=== PATIENT | female | born 1950 | race Caucasian/White ===

== ENCOUNTER 2021-04-25 22:33 | Inpatient (IN) | payer MEDICARE, OTHER ==
[~2021-04-25] VITALS: Ht 160 cm; Wt 54.4 kg
[2021-04-25] MEDS ORDERED: LORAZEPAM 0.5 MG TABLET PO PRN (23:00)
[2021-04-25] MEDS ORDERED: MAGNESIUM HYDROXIDE 30 ML UDC PO PRN (23:00)
[2021-04-25] MEDS ORDERED: MAG HYDROX/AL HYDROX/SIMETH 30 ML UDC PO PRN (23:00)
[2021-04-25] MEDS ORDERED: TRIA80CR12 TP (23:24)
[2021-04-25] MEDS ORDERED: IVER3TAB2 PO (23:25)
[2021-04-25] MEDS ORDERED: ALBU18HF2 PO (23:25)
[2021-04-25] MEDS ORDERED: RAMI10CA69 PO (23:26)
[2021-04-25] MEDS ORDERED: TIOT18CA3 INH (23:27)
[2021-04-25] MEDS ORDERED: ARIP20TA20 PO (23:28)
[2021-04-25] MEDS ORDERED: BUDE10.2 PO (23:28)
[2021-04-25] MEDS ORDERED: BLOOD SUGAR DIAGNOSTIC 1 EACH STRIP IN ONE (23:30)
--- NOTE | 2021-04-25 23:45 | NUR ---
GPS CERTIFIED WELLNESS PROGRAM COORDINATOR NOTES: RECEIVED PATIENT [facility] BUT ORIGINALLY HOMELESS FOSTER/SKILLED NURSING. PATIENT ARRIVED ON THIS UNIT AT 2210 VIA GURNEY WITH 2 EMT'S. PATIENT ADMITTED ON A 5150 HOLD FOR GD. PER HOLD, PATIENT IS LETHARGIC, CALM, COOPERATIVE & ORIENTED X 3. 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 CLIENT REPORTS VISUAL & TACTILE HALLUCINATIONS OF WORMS ALL OVER HER BODY. CLIENT IS UNABLE TO VERBALIZE PLAN FOR SELF CARE, FOOD, CLOTHING AND/OR INTERMEDIATE. UPON FACE TO FACE EVALUATION, PATIENT WAS A/O X2, LETHARGIC, SLEEPY, TIRED, DISHEVELED, UNKEPT, MALODOROUS, ANXIOUS, RESTLESS AT TIMES BUT REDIRECTABLE, NO S/S OF DISTRESS NOTED. VSS. RESPIRATION EVEN AND UNLABORED WITH EQUAL RISE AND FALL OF THE CHEST, ON ROOM AIR. DENIES SI/HI AND PAIN AT THIS TIME. ACCU CHEK DONE, BS 107 MG/DL. PATIENT REFUSED TO SIGN ALL ADMISSION PAPERWORK DUE TO CURRENT MENTAL STATUS. SKIN ASSESSMENT DONE. PATIENT ADVISED OF HER HOLD AND PATIENT RIGHT HANDBOOK AND A GUIDE TO PRESCRIPTION MEDICATION BOOKLET GIVEN. PATIENT IS UNDER THE PSYCHIATRIC CARE OF DR GAVIN AND MEDICAL CARE OF HARRIET BRADY. PATIENT BELONGINGS WERE INVENTORIED AND CHECKED FOR CONTRABAND. PER PATIENT SHE RECEIVED COVID [address] [facility], PFIZER 2 DOSES BUT DOES NOT REMEMBER THE DATES. PATIENT ORIENTED TO ROOM, FLOOR, AND STAFF. PATIENT BED SIDE RAILS UP X2 FOR SAFETY. PATIENT BED IS LOCKED AND IN LOWEST POSITION. BED ALARM ON. AMBULATORY WITH STAND BY ASSIST ONLY, UNSTEADY, FALL RISK. ALL PATIENT NEEDS HAVE BEEN MET AT THIS TIME. PATIENT IS CURRENTLY SLEEPING COMFORTABLY IN BED. WILL CONTINUE TO MONITOR Q15 FOR SAFETY, MOOD AND BEHAVIOR.
--- NOTE | 2021-04-26 00:21 | NUR ---
RN NOTE MRSA SWAB COLLECTED.
[2021-04-26 02:09] VITALS: BP 113/73
[2021-04-26] MEDS ORDERED: ALBUTEROL SULFATE INH 18 GM HFA.AER.AD IH PRN (05:00)
--- NOTE | 2021-04-26 05:53 | NUR ---
RN NOTE PATIENT HAS BEEN SLEEPING COMFORTABLY, WOKE UP TO USE THE RESTROOM, ASSISTED THE PATIENT & WENT BACK TO SLEEP. BED ALARM IS ON FOR SAFETY.
[2021-04-26] MEDS: IPRATROPIUM NEB FS 0.5 MG/2.5 ML AMPUL.NEB NEB SCH ×3 (06:00→19:54)
--- NOTE | 2021-04-26 06:40 | NUR ---
RN NOTE CALLED ERINN BROWN AT [phone], LEFT A VOICEMAIL.
[2021-04-26 07:15] LABS: BASOPHILS # (AUTO) 0.1 K/uL (0.0-0.2); BASOPHILS % (AUTO) 1.4 % (0.0-2.0); EOSINOPHILS % (AUTO) 3.9 % (0.0-6.0); HEMATOCRIT 41 % (33-45); HEMOGLOBIN 13.9 g/dL (11.5-14.8); LYMPHOCYTES # (AUTO) 1.4 K/uL (0.8-4.8); LYMPHOCYTES % (AUTO) 33.5 % (20.0-44.0); MEAN CORPUSCULAR HGB CONC 34 g/dl (31.0-36.0); MEAN CORPUSCULAR VOLUME 95 fL (82-100); MONOCYTES # (AUTO) 0.5 K/uL (0.1-1.30); MONOCYTES % (AUTO) 11.9 % (2.0-12.0); NEUTROPHILS % (AUTO) 49.3 % (43.0-81.0); PLATELET COUNT (AUTO) 127 K/uL (150-450); RED BLOOD CELL COUNT(AUTO) 4.25 MIL/uL (4.0-5.2); WHITE BLOOD COUNT (AUTO) 4.1 K/uL (4.3-11.0)
[2021-04-26 07:32] LABS: CALCIUM, SERUM 8.7 mg/dL (8.5-10.1); CREATININE 0.9 mg/dL (0.6-1.3); POTASSIUM 4.3 mmol/L (3.5-5.1)
[2021-04-26 08:00] VITALS: BP 114/58
[2021-04-26] MEDS: NICOTINE PATCH (14MG) 14 MG PATCH.TD24 TD SCH (08:39)
[2021-04-26] MEDS: RAMIPRIL 5 MG CAPSULE PO SCH (08:39)
[2021-04-26] MEDS: TRIAMCINOLONE ACETONIDE 0.1% CR 15 GM TUBE TP SCH ×2 (08:41→17:40)
[2021-04-26] MEDS ORDERED: TIOTROPIUM BROMIDE 6 CAP/BOX CAP.W.DEV IH SCH (09:00)
--- NOTE | 2021-04-26 09:25 | NUR ---
WOUND CARE CONSULT: PT PRESENTS WITH INTACT SKIN AND SOME AREAS OF DISCOLORATION ON LOWER EXTREMITIES, PRESENT ON ADMISSION. WILL SEE PRN.
[2021-04-26 16:00] VITALS: BP 123/60
--- NOTE | 2021-04-26 16:32 | NUR ---
Initial discharge plan: Pt was living in a halfway located at [address] [place], [place] [id number]; [phone]. Pt reports that the halfway closed down and pt is currently homeless. SW will work with the pt and the MD regarding appropriate discharge planning. SW will form a safe and proper discharge.
[2021-04-26 20:39] VITALS: BP 142/86
[2021-04-26 21:07] VITALS: BP 148/86
[2021-04-26] MEDS: BENZTROPINE MESYLATE (1 MG) 1 MG TABLET PO SCH (21:07)
[2021-04-26] MEDS: ARIPIPRAZOLE 5 MG TABLET PO SCH (21:54)
[2021-04-27] MEDS: IPRATROPIUM NEB FS 0.5 MG/2.5 ML AMPUL.NEB NEB SCH ×5 (06:00→23:25)
[2021-04-27 08:00] VITALS: BP 141/66
[2021-04-27] MEDS: NICOTINE PATCH (14MG) 14 MG PATCH.TD24 TD SCH (08:53)
[2021-04-27] MEDS: TRIAMCINOLONE ACETONIDE 0.1% CR 15 GM TUBE TP SCH ×2 (08:55→16:03)
[2021-04-27] MEDS: RAMIPRIL 5 MG CAPSULE PO SCH (08:55)
[2021-04-27] MEDS: CEPHALEXIN MONOHYDRATE 500 MG CAPSULE PO SCH ×2 (16:03→21:45)
[2021-04-27 16:07] VITALS: BP 127/68
[2021-04-27] MEDS: ACETAMINOPHEN 325 MG TABLET PO PRN (18:47)
[2021-04-27 20:08] VITALS: BP 142/71
[2021-04-27 20:39] VITALS: BP 142/71
[2021-04-27] MEDS: BENZTROPINE MESYLATE (1 MG) 1 MG TABLET PO SCH (21:45)
[2021-04-27] MEDS: ARIPIPRAZOLE 5 MG TABLET PO SCH (22:07)
--- NOTE | 2021-04-28 01:22 | NUR ---
RN NOTE PATIENT IS SLEEPING COMFORTABLY. NO ACUTE CHANGES NOTED.
[2021-04-28] MEDS: TEMAZEPAM 7.5 MG CAPSULE PO PRN ×3 (01:55→22:10)
--- NOTE | 2021-04-28 01:58 | NUR ---
RN NOTE: INSOMNIA PATIENT VERBALIZED THAT SHE IS UNABLE TO SLEEP & REQUESTED TO TAKE SLEEPING MEDICINE. PRN RESTORIL 7.5 MG 1 CAP PO ADMINISTERED.
[2021-04-28] MEDS: ACETAMINOPHEN 325 MG TABLET PO PRN ×3 (07:06→21:02)
--- NOTE | 2021-04-28 07:09 | NUR ---
RN NOTE: PAIN PATIENT C/O RIGHT ANKLE PAIN 12/19 & WANTED TO TAKE TYLENOL. PRN TYLENOL 650 MG PO ADMINISTERED. WILL CONTINUE TO MONITOR.
[2021-04-28] MEDS: IPRATROPIUM NEB FS 0.5 MG/2.5 ML AMPUL.NEB NEB SCH ×3 (07:30→20:15)
[2021-04-28 08:04] VITALS: BP 116/72
[2021-04-28] MEDS: CEPHALEXIN MONOHYDRATE 500 MG CAPSULE PO SCH ×2 (09:23→21:02)
[2021-04-28] MEDS: NICOTINE PATCH (14MG) 14 MG PATCH.TD24 TD SCH (09:23)
[2021-04-28] MEDS: TRIAMCINOLONE ACETONIDE 0.1% CR 15 GM TUBE TP SCH ×2 (09:25→16:26)
[2021-04-28] MEDS: RAMIPRIL 5 MG CAPSULE PO SCH (09:25)
--- NOTE | 2021-04-28 14:11 | NUR ---
PATIENT C/O RIGHT ANKLE PAIN 5/10 .TYLENOL 650 MG PO ADMINISTERED. WILL CONTINUE TO MONITOR FOR PAIN.
[2021-04-28 16:03] VITALS: BP 110/70
--- NOTE | 2021-04-28 18:51 | NUR ---
RN-CO: Patient is visible in the unit, needy, denied pain and discomforts. She needs constant redirections.
[2021-04-28 20:00] VITALS: BP 137/84
[2021-04-28] MEDS: BENZTROPINE MESYLATE (1 MG) 1 MG TABLET PO SCH (21:02)
--- NOTE | 2021-04-28 21:03 | NUR ---
GPS RN NOTES PATIENT REQUESTED FOR TYLENOL. I ASKED IF SHE HAS PAIN, SHE SAID YES. ON HER FEET. GIVEN TYLENOL 650MG.
--- NOTE | 2021-04-28 21:04 | NUR ---
GPS RN NOTES PATIENT REQUESTED FOR SLEEPING MEDICATION. PER PATIENT SHE IS TIRED AND SHE WANTS TO TAKE IT WITH HER 2100 MEDS. GIVEN RESTORIL 7.5 PRN.
[2021-04-28] MEDS: ARIPIPRAZOLE 5 MG TABLET PO SCH (22:09)
[2021-04-29] MEDS: IPRATROPIUM NEB FS 0.5 MG/2.5 ML AMPUL.NEB NEB SCH ×5 (01:30→23:57)
[2021-04-29 08:00] VITALS: BP 113/76
[2021-04-29] MEDS: RAMIPRIL 5 MG CAPSULE PO SCH (09:00)
--- NOTE | 2021-04-29 09:00 | NUR ---
RN NOTE: Patient is visible in the unit, needy, denied pain and discomfort at this time. She needs constant redirections. Denies SI/HI. Will continue to monitor for safety.
[2021-04-29] MEDS: NICOTINE PATCH (14MG) 14 MG PATCH.TD24 TD SCH (09:20)
[2021-04-29] MEDS: CEPHALEXIN MONOHYDRATE 500 MG CAPSULE PO SCH ×2 (09:23→21:29)
[2021-04-29] MEDS: TRIAMCINOLONE ACETONIDE 0.1% CR 15 GM TUBE TP SCH ×2 (09:26→16:33)
[2021-04-29] MEDS: ACETAMINOPHEN 325 MG TABLET PO PRN ×3 (10:05→23:50)
--- NOTE | 2021-04-29 10:07 | NUR ---
PT COMPLAINED OF ANKLE PAIN. TYLENOL GIVEN.
[2021-04-29 16:00] VITALS: BP 141/82
--- NOTE | 2021-04-29 16:34 | NUR ---
PT COMPLAINED OF PAIN IN RIGHT FOOT. TYLENOL 650 GIVEN.
[2021-04-29 18:31] VITALS: BP 111/69
--- NOTE | 2021-04-29 18:34 | NUR ---
BP 111/69 HR 83
[2021-04-29 20:00] VITALS: BP 116/58
[2021-04-29] MEDS: BENZTROPINE MESYLATE (1 MG) 1 MG TABLET PO SCH (21:29)
[2021-04-29] MEDS: ARIPIPRAZOLE 5 MG TABLET PO SCH (22:07)
[2021-04-29] MEDS: TEMAZEPAM 7.5 MG CAPSULE PO PRN (22:07)
[2021-04-30] MEDS: IPRATROPIUM NEB FS 0.5 MG/2.5 ML AMPUL.NEB NEB SCH ×3 (06:00→12:00)
--- NOTE | 2021-04-30 06:46 | NUR ---
RN CLOSING NOTE PATIENT SLEEPING IN ROOM, NO S/S OF DISTRESS OR SOB NOTED, BREATHING EVEN AND UNLABORED. PT WAS VERY INTERACTIVE AND NEEDY, SLEPT INTERMITTENTLY BUT STATED SLEEPING PILL ONLY HELPED HER SLEEP FOR A LITTLE WHILE, SLEPT 5 HOURS. PATIENT WAS MED COMPLIANT. MEDICATIONS GIVEN ORDERED. PATIENT NEEDS MET THROUGHOUT SHIFT. PATIENT DENIED SI/HI. SAFETY MEASURES KEPT IN PLACE: BED LOCKED IN LOWEST POSITION, SIDE RAILS UP X 2, Q15 MIN CHECKS FOR SAFETY BY STAFF. WILL ENDORSE TO DAY SHIFT NURSE FOR CONTINUITY OF CARE
[2021-04-30 08:00] VITALS: BP 118/81
[2021-04-30] MEDS: RAMIPRIL 5 MG CAPSULE PO SCH (08:21)
[2021-04-30] MEDS: TRIAMCINOLONE ACETONIDE 0.1% CR 15 GM TUBE TP SCH ×2 (08:21→17:28)
[2021-04-30] MEDS: CEPHALEXIN MONOHYDRATE 500 MG CAPSULE PO SCH ×2 (08:22→21:25)
[2021-04-30] MEDS: ACETAMINOPHEN 325 MG TABLET PO PRN ×2 (08:22→15:22)
[2021-04-30] MEDS: NICOTINE PATCH (14MG) 14 MG PATCH.TD24 TD SCH (08:22)
--- NOTE | 2021-04-30 08:28 | NUR ---
RN NOTE: PAIN PT C/O 12/19 RIGHT ANKLE PAIN. MEDICATED WITH TYLENOL 650 MG PO PRN.
--- NOTE | 2021-04-30 12:48 | NUR ---
Facility contact: STEPHANE contacted [employer] ([phone]) who owns the Trans[facility] pt is staying at. [employer] reports that the Transitional Housing is not closed and that pt can return to the home upon discharge.
--- NOTE | 2021-04-30 13:12 | NUR ---
Point of contact: STEPHANE contacted pts boyfriend Kun ([phone]) and informed him that pt is being discharged tomorrow. Kun confirmed that he can pick pt up at 2:30pm and bring her to her transitional housing.
--- NOTE | 2021-04-30 15:24 | NUR ---
RN NOTE: PAIN PT C/O 12/19 RIGHT ANKLE PAIN. REQUESTING TYLENOL. TYLENOL 650 MG PO PRN ADMINISTERED.
[2021-04-30 16:00] VITALS: BP 111/69
[2021-04-30 20:00] VITALS: BP 142/77
[2021-04-30] MEDS: BENZTROPINE MESYLATE (1 MG) 1 MG TABLET PO SCH (21:16)
[2021-04-30] MEDS: ARIPIPRAZOLE 5 MG TABLET PO SCH (21:17)
[2021-05-01] MEDS: TEMAZEPAM 7.5 MG CAPSULE PO PRN (02:16)
--- NOTE | 2021-05-01 02:17 | NUR ---
GPS RN NOTES: RESTORIL 7.5MG/1CAP GIVEN PO PRN AT 0216. WILL CONTINUE TO MONITOR.
[2021-05-01] MEDS: IPRATROPIUM NEB FS 0.5 MG/2.5 ML AMPUL.NEB NEB SCH ×3 (06:00→12:00)
[2021-05-01] MEDS: ACETAMINOPHEN 325 MG TABLET PO PRN (06:43)
[2021-05-01 08:00] VITALS: BP 122/75
[2021-05-01] MEDS: NICOTINE PATCH (14MG) 14 MG PATCH.TD24 TD SCH (08:42)
[2021-05-01] MEDS: CEPHALEXIN MONOHYDRATE 500 MG CAPSULE PO SCH (08:43)
[2021-05-01] MEDS: TRIAMCINOLONE ACETONIDE 0.1% CR 15 GM TUBE TP SCH (08:43)
[2021-05-01 08:44] VITALS: BP 122/75
[2021-05-01] MEDS: RAMIPRIL 5 MG CAPSULE PO SCH (08:44)
--- NOTE | 2021-05-01 12:23 | NUR ---
RT: PATIENT REFUSED TREATMENT AT THIS TIME AND BUSINESS INTELLIGENCE REPORTING ANALYST WERE INFORMED. PATIENT APPEARED W/O SOB OR DISTRESS.
--- NOTE | 2021-05-01 14:30 | NUR ---
SUPERVISOR LENDING ACTIVITIES NOTE: 70 YEAR OLD FEMALE DISCHARGED TO IN STABLE CONDITION. COMPLIANT WITH MEDICATIONS, COOPERATIVE WITH TREATMENT PLANS. PATIENT DENIES SI/HI AND INSTRUCTED TO GO TO THE CLOSEST ER IF DEVELOPING SI/HI. BEHAVIOR IMPROVED, PSYCHIATRIC TREATMENT PLANS MET, MEDICAL TREATMENT PLANS DEFERRED FOR CONTINUAL MONITORING. EDUCATED PT ABOUT AFTER CARE AND COPY PROVIDED. RETURNED PERSONAL BELONGINGS AND VALUABLES RETURNED TO PT. MEDICATIONS RECONCILED WITH PSYCHIATRIST AND MEDICAL EVIDENCE CUSTODIAN. PATIENT SIGNED DISCHARGE PAPERWORK. PT REFUSED SKIN ASSESSMENT AND PICTURES. PATIENT ID BAND REMOVED. PATIENT LEFT THE UNIT VIA AMBULATION WITH BOYFRIEND ERINN PRESENT.
--- NOTE | 2021-05-01 14:30 | NUR ---
Discharge note: Pt will be discharged to her transitional housing home located at [address] [facility], [address]. Pt will be picked up by her boyfriend Kun ([phone]) at 2:30pm. The homeowner of the transitional housing facility [employer] ([phone]) was contacted about the discharge. Upon discharge, the pt appears to be in a euthymic mood and presented with a anxious affect. Pt denies both suicidal and homicidal ideation as well as auditory and visual hallucinations. Pt was referred to [facility] located on [address] [address] [address] ([phone]) for psychiatric services. The [facility] has walk in hours Thursday- Thursday 8:00 am -5:00 pm and no appointment is needed. The pt was referred to [facility] located at [address] [place] [address]; for medical services. Patient was provided with a brief substance abuse intervention and referred to the following substance abuse programs: [facility] Substance Abuse Self-helpline ([phone]); [facility] [address] [place] [address] ([phone]); [address] [address] ([phone]); [facility] ([phone]); [facility] ([phone]); [facility] ([phone]); [facility] ([phone]). The multidisciplinary exit care form was done, printed, signed, and given to the patient.
== END 2021-05-01 14:30 | disposition home or self-care (01) | DRG 885 ==
LOC: GPS 22:33
PROVIDERS: ADMIT Psychiatry & Neurology Psychosomatic Medicine; ATTEND Student in an Organized Health Care Education/Training Program
DX: F25.9 Schizoaffective disorder, unspecified (principal); F06.30 Mood disorder due to known physiological condition, unspecified; N39.0 Urinary tract infection, site not specified; E78.5 Hyperlipidemia, unspecified; F12.90 Cannabis use, unspecified, uncomplicated; F15.10 Other stimulant abuse, uncomplicated; J44.9 Chronic obstructive pulmonary disease, unspecified; K75.9 Inflammatory liver disease, unspecified; Z90.49 Acquired absence of other specified parts of digestive tract; Z88.5 Allergy status to narcotic agent; F17.210 Nicotine dependence, cigarettes, uncomplicated
CPT/HCPCS: 36415; 80048-TC; 80061-TC; 82962-TC; 84443-TC; 85025-TC; 87081-TC; 97110-TC; 97116-TC; 97530-TC